=== PATIENT | female | born 1965 | race Caucasian/White ===

== ENCOUNTER → 2024-04-26 14:10 | Outpatient (REF) | payer OTHER, SELFPAY | LOC: RAD 14:10 | PROVIDERS: ATTENDING PHYSICIAN Student in an Organized Health Care Education/Training Program | DX: M25.521 Pain in right elbow (principal); M25.561 Pain in right knee; R22.41 Localized swelling, mass and lump, right lower limb | CPT/HCPCS: 73080; 73564 ==